=== PATIENT | female | born 1980 | race Two or more races ===

== ENCOUNTER 2018-12-02 15:43 | Emergency (ER) | payer OTHER ==
[~2018-12-02] VITALS: Ht 175.3 cm; Wt 103.9 kg
[2018-12-02 16:00] VITALS: BP 132/79
[2018-12-02] MEDS ORDERED: KETOROLAC TROMETH 60MG/2ML VIAL IM ONE (16:30)
== END 2018-12-02 16:58 | disposition home or self-care (01) ==
LOC: ER 15:43
DX: K64.4 Residual hemorrhoidal skin tags (principal)
CPT/HCPCS: 96372; 99283; J1885